=== PATIENT | male | born 1960 | race Caucasian/White ===

== ENCOUNTER 2019-08-16 14:09 | Emergency (ER) | payer MEDICAID, SELFPAY ==
[2019-08-16 14:10] VITALS: BP 126/83; PULSE 128; RESP 18; TEMP 37.6; O2SAT 98; BMI 22.3
[2019-08-16] MEDS: 0.9% Normal Saline 1,000 ML 1000 ML IV (15:27)
[2019-08-16 15:28] LABS: Hematocrit 33.1 % (40-54); Mean Corp Hgb Conc 33.2 g/dL (32-36); Mean Corpuscular Hgb 26.2 pg (27.0-32.0); Mean Corpuscular Volume 78.8 fL (80-94); Mean Platelet Vol. 7.9 fl (6.2-12.0); POSITIVE MORPHOLOGY YES; Platelet Count 649 K/mm3 (150-450); RBC Distribution Width CV 13.2 % (11.6-14.6); RBC Distribution Width SD 37.5 fl (35.1-43.9); White Blood Count 9.1 K/mm3 (4.4-11.0)
[2019-08-16 15:47] LABS: AST(SGOT) 9 U/L (15-37); Alanine Aminotransfer ALT/SGPT 18 U/L (16-61); Albumin, Serum 1.9 g/dL (3.2-5.0); Alkaline Phosphatase 141 U/L (45-117); Anion Gap 7 (5-15); BUN 11 mg/dL (7-18); BUN/Creat Ratio 13.6 RATIO (10-20); Bilirubin, Direct 0.29 mg/dL (0.00-0.30); Calcium,Total 7.8 mg/dL (8.5-10.1); Chloride 101 mmol/L (98-107); Creatinine, Serum 0.81 mg/dL (0.70-1.30); EST Glomerular Filtration Rate 104 mL/min (>60); Est Glom Filt Rate - Afr Amer 126 mL/min (>60); Estimated Creatinine Clearance 107.78 ml/min; Glucose 262 mg/dL (74-106); Lipase 25 U/L (73-393); Potassium 2.9 mmol/L (3.5-5.1); Protein, Total 6.9 g/dL (6.4-8.2); Sodium Level 133 mmol/L (136-145)
[2019-08-16 16:07] LABS: Differential Indicated MANUAL DIFF
[2019-08-16 16:08] LABS: Absolute Lymphocyte Count 1.27 X10^3/uL (0.83-4.51); Lymphocyte # 1.27 X10^3/ul (4.0); Neutrophil # 7.01 X10^3/uL (2.7-7.7)
[2019-08-16 16:09] LABS: Differential Comment SCANNED; Lymphocyte 14 % (19-41); Microcytosis 1+; Monocyte 9 % (0-10); Neutrophil-Band 29 % (0-5); Neutrophil-Segmented 48 % (47-70); Platelet Estimate SLT INC (ADEQ); Total Cells Counted 100 (MANUAL DIFF)
[2019-08-16 16:10] LABS: Dohle Bodies RARE
[2019-08-16 16:21] VITALS: RESP 16
[2019-08-16 16:23] LABS: Bacteria 0 SEEN /hpf (None Seen); Red Blood Cells-Urine 0 SEEN /hpf (0-5)
[2019-08-16 16:24] VITALS: BP 121/78; PULSE 98; RESP 16; TEMP 37; O2SAT 99
[2019-08-16 16:43] LABS: Color, Urine Yellow (Yellow); Glucose, Dipstick Normal (Normal); Ketone-Dipstick 5 mg/dl (Negative); Leukocyte Esterase-Dipstick 25 /ul (Negative); Nitrite-Dipstick Negative (Negative); Occult Blood-Urine Negative /ul (Negative); Protein-Dipstick 30 mg/dl (Negative); Specific Gravity, Urine 1.015 (1.002-1.030); Urine Bilirubin Dipstick Negative (Negative); Urine Clarity Cloudy (Clear); Urine Urobilinogen 1 mg/dl (Normal)
--- NOTE | 2019-08-16 16:51 | ED.VISSUMM ---
- ER Visit Summary Date of Service: 08/16/19 Chief Complaint: Diarrhea and weight loss History of Present Illness: The patient is a 59 M is no primary care physician. Reportedly was told in the past that he had irritable bowel syndrome. Patient denies any prior abdominal surgery. Says for 3 weeks he has had diarrhea almost daily. He is lost 15 to 20 pounds. He said he may have had a small amount of blood in his stool. Denies any melena. No fever. No significant abdominal pain. Recent antibiotic use and he also has had no recent hospitalization. Drinks city water not well water. Physical Examination: Middle-aged male no acute distress vital signs stable afebrile heart rate 128. H EENT exam unremarkable. Moist week's membranes. Neck nontender. Lungs clear to auscultation. Heart tachycardic no murmur. Abdomen soft nontender, nondistended normal bowel sounds no peritoneal signs. Remedies moves all 4. Calves nontender without edema or cords. Normal strength and sensation. Normal range of motion. Skin unremarkable. Neurologically is awake and alert. Test Results: Seizures White count 9. Hemoglobin of 11 I do not have the old labs available for comparison he is mildly anemic. Electrolytes are sodium 133 potassium 2.9 normal gap normal BUN and creatinine. Glucose 222. Liver enzymes normal lipase normal. Troponin is normal. Emergency Department Course and Treatment: A liter normal saline. P.o. potassium. On repeat exam he is doing well. Resting comfortably. Treatment Plan: Fluids and rest. Imodium for diarrhea. Referred to local primary care physician. Disposition: Discharge Impression: Acute diarrhea uncertain etiology Acute hypokalemia secondary to diarrhea Simple anemia This note was generated with [employer] dictation software. It may contain incorrect words, spelling, and punctuation that were not noted in review of the chart prior to signing ED Disposition - Plan for ED Patient: Referrals: Care Physician,No Primary [Primary Care Provider] -
[2019-08-16 16:54] LABS: Amorphous Sediment 1+ URATE; Mucous, Urine 1+ /hpf (<or=2+); Squamous Epithelial Cells - UA 5-10 SEEN /hpf (0-5); White Blood Cells 0-5 SEEN /hpf (0-5)
--- NOTE | 2019-08-16 17:21 | ED.DEP ---
ED Disposition - Plan for ED Patient: Disposition: Home or Assisted Living Instructions: VOMITING AND DIARRHEA, Nonspecific (Adult) Prescriptions: Loperamide [Imodium] 2 mg PO Q2H PRN PRN #10 cap PRN Reason: Diarrhea Prescription Printed Potassium Chloride [K-Dur] 20 meq PO DAILY #20 tab Prescription Printed Referrals: Yefri Upton MD [STAFF PHYSICIAN] - As soon as possible Additional Instructions: Plenty of fluids and rest. Continue to see him daily because your potassium is running low due to the diarrhea. Imodium as needed for the diarrhea. Preparation H for the hemorrhoids. Follow-up with a local primary care physician due to your weight loss, your diarrhea injury anemia.
[2019-08-16 17:46] VITALS: RESP 18
== END 2019-08-16 17:46 | disposition home or self-care (01) ==
PROVIDERS: Emergency Provider Emergency Medicine
DX: R19.7 Diarrhea, unspecified (principal); E87.6 Hypokalemia; D64.9 Anemia, unspecified; Z72.0 Tobacco use
CPT/HCPCS: 80048; 80076; 81001; 83690; 85025; 96360; 99284; J7030

== ENCOUNTER → 2019-08-21 12:54 | Outpatient (CLI) | payer MEDICAID, SELFPAY ==
[2019-08-20 16:50] VITALS: BMI 22.3
[2019-08-21 13:13] LABS: Hematocrit 34.2 % (40-54); Hemoglobin 11.1 g/dL (13.0-16.5); Mean Corp Hgb Conc 32.5 g/dL (32-36); Mean Corpuscular Hgb 25.7 pg (27.0-32.0); Mean Corpuscular Volume 79.2 fL (80-94); Mean Platelet Vol. 8.1 fl (6.2-12.0); POSITIVE MORPHOLOGY YES; Platelet Count 745 K/mm3 (150-450); RBC Distribution Width CV 13.7 % (11.6-14.6); RBC Distribution Width SD 39.3 fl (35.1-43.9); Red Blood Count 4.32 M/mm3 (4.6-6.2); White Blood Count 8.8 K/mm3 (4.4-11.0)
[2019-08-21 13:45] LABS: Differential Indicated MANUAL DIFF
[2019-08-21 13:53] LABS: Lymphocyte 18 % (19-41); Monocyte 3 % (0-10); Neutrophil-Band 42 % (0-5); Neutrophil-Segmented 37 % (47-70); Nucleated Red Bld Cells,Manual 1 % (0-5); Platelet Estimate MKD DEC (ADEQ); Red Cell Morphology NORM C+C NORMAL (NORM C&C); Total Cells Counted 100 (MANUAL DIFF)
[2019-08-21 13:55] LABS: Absolute Lymphocyte Count 1.58 X10^3/uL (0.83-4.51); BUN 17 mg/dL (7-18); Creatinine, Serum 0.87 mg/dL (0.70-1.30); Glucose 162 mg/dL (74-106)
[2019-08-21 13:56] LABS: Anion Gap 13 (5-15); BUN/Creat Ratio 19.5 RATIO (10-20); Calcium,Total 8.1 mg/dL (8.5-10.1); Chloride 98 mmol/L (98-107); EST Glomerular Filtration Rate 95 mL/min (>60); Est Glom Filt Rate - Afr Amer 115 mL/min (>60); Ferritin 1241 ng/mL (26-388); Iron 20 ug/dL (65-175); Iron Binding Capacity,Total 109 ug/dL (250-450); Potassium 3.2 mmol/L (3.5-5.1); Sodium Level 134 mmol/L (136-145)
[2019-08-21 13:57] LABS: Hemoglobin A1c 8.1 % (4.2-6.3)
[2019-08-24 13:36] LABS: Pathologist Review Reviewed
== END ==
PROVIDERS: Family Provider Family Medicine; PCP Family Medicine; Referring Provider Family Medicine; Visit Provider Family Medicine
DX: D50.9 Iron deficiency anemia, unspecified (principal); E87.6 Hypokalemia; R73.09 Other abnormal glucose
CPT/HCPCS: 36415; 80048; 82728; 83036; 83540; 83550; 85025

== ENCOUNTER 2019-08-21 14:20 | Emergency (ER) | payer MEDICAID, SELFPAY ==
[2019-08-20 16:50] VITALS: BMI 22.3
[2019-08-21 14:21] VITALS: BP 90/57; PULSE 127; RESP 24; TEMP 36.4; O2SAT 100; BMI 22.1
--- NOTE | 2019-08-21 15:06 | CT_ITS ---
STUDY: CT ABDOMEN AND PELVIS WITHOUT CONTRAST REASON FOR EXAM: Male, 59 years old. Rectal abscess RADIATION DOSAGE (If Supplied By Facility): CTDIvol = ( 10.70 ) mGy, DLP = ( 924.41 ) mGycm TECHNIQUE: Transaxial images were obtained from the dome of the diaphragm to the symphysis pubis without oral contrast, and without intravenous contrast. Sagittal and coronal images were reconstructed. Individualized dose optimization techniques were used for this CT. COMPARISON: None. FINDINGS: The visualized lung bases are unremarkable. The visualized portions of the heart are within normal limits. Liver is normal size. There is a hypoattenuated mass with peripheral nodular enhancement likely representing hemangioma measuring 3.9 x 3.3 x 3.47 cm in the posterior segment of the right lobe. Bile ducts are not dilated.. Multiple tiny calcified stones in the gallbladder without evidence for acute inflammation. Normal spleen. Normal pancreas. There is predominantly fatty mass in the right adrenal measuring 3.25 x 2.75 cm consistent with benign myelolipoma. Left adrenal is normal Normal right kidney. Normal left kidney. Normal visualized stomach. Normal small intestine. There is mild concentric thickening of the distal descending colon and rectosigmoid consistent with nonspecific colitis. No evidence for acute appendicitis There are phlegmonous changes in the at the level of the anorectal junction to the right of the midline in association with small fluid collection containing a air bubbles consistent with focal abscess. 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 There is suggestion of possible fistulous communication with the anus. Clinical correlation is recommended Minor atherosclerotic changes of the aorta without evidence for aneurysm.. Normal inferior vena cava. Normal retroperitoneum. Normal urinary bladder. Lumbar spine demonstrates mild spondylosis. CT/Abdomen/Pelvis W IV Cont ONLY IMPRESSION: Nonspecific inflammatory bowel disease involving predominantly the distal descending and rectosigmoid segments of the colon. There is associated focal abscess at the anorectal junction on the right with subcutaneous gas in the right perineal soft tissues consistent with gangrenous changes. On one of the images, there appears to be fistulous communication of the abscess with the anal wall. Clinical correlation is recommended. Incidental findings include cholelithiasis without evidence for acute cholecystitis benign right adrenal myelolipoma and hemangioma in the right lobe of the liver Electronically Signed: Braxton Mcgee MD at 16:20 EDT , Service support ,
--- NOTE | 2019-08-21 15:09 | ED.DCSUM_ITS ---
History of Present Illness Chief Complaint: Abscess Narrative: Patient presenting for evaluation secondary to a rectal abscess. Patient states that this has been getting worse over the course of the last week, but potentially has been present over the course the last month. He reports that he has pain in his rectal area that is worse with sitting as well as with having a bowel movement. He reports that he has been having intermittent subjective fevers associated with this. No objective fevers. Patient was at the general surgery office today, had a rectal exam performed and was recommended to come immediately to the emergency department. Patient states that he also has been having some dizziness and high blood sugars recently. Review of systems otherwise negative. Past Medical History - Allergies and Home Meds Allergies/Adverse Reactions: Allergies No Known Allergies Allergy (Verified 08/21/19 14:21) Primary Care Physician: Yefri Upton MD [Primary Care Provider] - Past Medical History: - - diabetes Smoking Status: Current every day smoker Review of Systems General: Reports: Chills Gastrointestinal: Reports: - - Rectal pain Neurological: Reports: - - Dizziness Physical Exam Vital Signs/Narrative: Vital Signs Temp Pulse Resp BP Pulse Ox 08/21/19 14:21 97.6 F L 127 H 24 H 90/57 L 100 General: Well nourished, Well developed, No Acute Distress Head: Normocephalic, Atraumatic Eyes: Perrl, EOMI ENT: - - Oral thrush is noted Neck: Supple, Nontender Cardiovascular: Regular rhythm, No murmurs, Tachycardia Respiratory: No distress, CTA bilaterally, Chest nontender Abdomen: Soft, Nontender, Nondistended, Normal bowel sounds Rectal: Tenderness - Erythema surrounding the rectum and tracking superiorly with tenderness to palpation Extremities: Nontender, No edema Skin: Normal color, No rash Neurological: Alert, Oriented x3, Cranial nerves II-XII grossly intact, Normal Strength, Normal Sensation Psychological: Normal affect, Normal Mood Diagnostic/Tx/Re-eval - Medical Decision Making Patient was sent from the surgery office due to concern for a possible perirectal abscess. Upon arrival he was found to be hypotensive and tachycardic. He is found to have bandemia on prehospital labs, blood cultures and lactic acid were obtained. Lactic acid was found to be elevated just above 2. Patient was empirically started on vancomycin and Zosyn. CT demonstrates evidence of Shawnee's gangrene, I started the patient on clindamycin at that point as well. I discussed patient's case with general surgery, they stated that they would probably not be comfortable with performing this patient's procedure at this facility unless there was plastic surgery coverage. Currently today there is no plastic surgery coverage, so the patient will be transferred. I discussed this with [facility] who agreed to accept the patient in transfer. - Critical Care Time Critical care time (excluding procedures): 30-74 minutes - Critical care time was spent resuscitating the patient with fluids, interpreting exams, and speaking with consultants. ED Disposition - Plan for ED Patient: Disposition: [facility] Diagnosis: Fourniers gangrene
[2019-08-21] MEDS: 0.9% Normal Saline 1,000 ML 1000 ML IV (15:21)
[2019-08-21] MEDS: Morphine 4 MG/ML Syringe IV ×2 (15:22→17:49)
[2019-08-21] MEDS: Ondansetron 4 MG/2 ML Vial IV (15:23)
[2019-08-21 15:26] VITALS: BMI 22.2
[2019-08-21 15:58] LABS: Lactic Acid 2.2 mmol/L (0.4-2.0)
--- NOTE | 2019-08-21 16:00 | ED.RN ---
DR DEMPSEY NOTIFIED OF LACTIC RESULTS
[2019-08-21] MEDS: 0.9% Normal Saline 1,000 ML 999 ML IV (16:10)
[2019-08-21 16:20] VITALS: BP 107/69; PULSE 106; RESP 22; O2SAT 100
[2019-08-21] MEDS: 0.9% Normal Saline 1,000 ML 150 ML IV (16:21)
[2019-08-21 16:22] VITALS: BP 107/69; PULSE 106; RESP 22; TEMP 36.6; O2SAT 100
--- NOTE | 2019-08-21 16:38 | ED.RN ---
MOHSEN BISHOP CONTACTED FOR DR DEMPSEY
[2019-08-21 18:02] VITALS: BP 112/54; PULSE 102; RESP 18; O2SAT 100
[2019-08-21 19:28] LABS: Reflex Lactate? Y
== END 2019-08-21 18:00 | disposition short-term general hospital (02) ==
PROVIDERS: Emergency Provider Emergency Medicine; Family Provider Family Medicine; PCP Family Medicine
DX: N49.3 Fournier gangrene (principal); E11.9 Type 2 diabetes mellitus without complications; F17.200 Nicotine dependence, unspecified, uncomplicated
CPT/HCPCS: 74177; 83605; 87040; 96361; 96365; 96367; 96375; 96376; 99285; J7030; J7040; J7050; Q9967; A4216; J2405